=== PATIENT | female | born 1940 | race Caucasian/White ===

== ENCOUNTER 2022-08-18 23:48 | Inpatient (IN) | payer OTHER ==
[~2022-08-18] VITALS: Ht 170.2 cm; Wt 62.6 kg
[2022-08-18 23:56] VITALS: BP 120/63
--- NOTE | 2022-08-18 23:56 | NUR ---
PT KITTY KELLYS. TAKEN TO BED 4
[2022-08-19] MEDS ORDERED: NACL 0.9% 1,000 ML IV ONE
--- NOTE | 2022-08-19 00:02 | NUR ---
PATIENT BROUHT TO THE HOSPITAL IN AMBULANCE AFTER BEEN DC FROM CUSTODIAL AND HER SON CALL AUTOMATION ARCHITECT AFTER START COMPLAINING OF ABDOMINAL PAIN PATIENT STABLE VITALS SIGNS IN NORMAL LIMITS ST 102 ON MONITOR
--- NOTE | 2022-08-19 00:53 | NUR ---
X-Ray at bedside.
[2022-08-19 01:21] LABS: HEMATOCRIT 28.5 % (36-48); HEMOGLOBIN 9.2 g/dL (12.0-16.0); MEAN CORPUSCULAR HEMOGLOBIN 28 pg (27-31); MEAN CORPUSCULAR HGB CONC 32 g/dL (33-37); MEAN CORPUSCULAR VOLUME 85.8 fL (80-94); PLATELET COUNT (AUTO) 424 K/uL (140-450); RED BLOOD CELL COUNT(AUTO) 3.32 MIL/uL (4.20-5.40); RED CELL DISTRIBUTION WIDTH 15.1 % (11.6-13.7); WHITE BLOOD COUNT (AUTO) 14.3 K/uL (4.8-10.8)
[2022-08-19 01:36] LABS: PROTHROMBIN TIME 17.1 secs (10.8-13.4)
[2022-08-19 01:38] LABS: LYMPHOCYTES % (MANUAL) 10 % (20-46); MONOCYTES % (MANUAL) 4 % (5-12)
[2022-08-19 01:49] LABS: ALBUMIN 1.4 g/dL (3.4-5.0); ANION GAP 20.5 (8-16); ASPARTATE AMINOTRANSFERASE 35 U/L (15-37); CARBON DIOXIDE 18.2 mmol/L (21-32); CHLORIDE 101 mmol/L (98-107); CREATININE 3.9 mg/dL (0.6-1.3); GLUCOSE 132 mg/dL (74-106); POTASSIUM 4.7 mmol/L (3.5-5.1); SODIUM SERUM 135 mmol/L (136-145); TOTAL BILIRUBIN 0.6 mg/dL (0.0-1.0)
[2022-08-19 01:58] LABS: UREA NITROGEN, BLOOD 63 mg/dL (7-18)
[2022-08-19 02:05] LABS: APPEARANCE,URINE TURBID (CLEAR); BILIRUBIN,URINE NEGATIVE (NEGATIVE); BLOOD, URINE 3+ (NEGATIVE); COLOR,URINE YELLOW (YELLOW); LEUKOCYTE ESTERASE ,URINE 3+ (NEGATIVE); NITRITE, URINE NEGATIVE (NEGATIVE); UGLUCOSE NEGATIVE (NEGATIVE)
[2022-08-19 02:07] LABS: WBC,URINE TOO MANY TO COUNT /HPF (0-5); YEAST,URINE Moderate /HPF (None Seen)
[2022-08-19] MEDS ORDERED: cefTRIAXone 1,000 MG VIAL ONE (02:41)
[2022-08-19] MEDS: NACL 0.9% 1,000 ML IV SCH ×2 (03:15→10:00)
[2022-08-19] MEDS ORDERED: LEVO-481 PO (03:31)
[2022-08-19] MEDS ORDERED: MIRA25TE PO (03:31)
[2022-08-19] MEDS ORDERED: DAPA5TAB PO (03:31)
[2022-08-19] MEDS ORDERED: ATOR20TA PO (03:31)
[2022-08-19] MEDS ORDERED: LISI-487 PO (03:31)
[2022-08-19] MEDS ORDERED: APIX5TAB PO (03:31)
[2022-08-19] MEDS ORDERED: MIRT-91 PO (03:31)
[2022-08-19] MEDS ORDERED: AMLO10TA PO (03:31)
[2022-08-19] MEDS ORDERED: TAMS0.4C96 PO (03:31)
--- NOTE | 2022-08-19 03:35 | NUR ---
PATIENT STABLE VITALS SIGNS IN NORMAL LIMITS NOT COMPLAINING OF PAIN AT THIS TIME
--- NOTE | 2022-08-19 03:41 | NUR ---
PATIENT STABLE DC HOME FEELING WELL VITALS SIGNS IN NORMAL LIMITS ALL DC INSTRUCTION GAVE AND EXPLAINED WE RECOMMEND TO FOLLOW UP WITH PCP
--- NOTE | 2022-08-19 03:46 | NUR ---
PATIENT POSITIVE COVID 19
--- NOTE | 2022-08-19 04:37 | NUR ---
PATIENT STABLE VITALS SIGNS IN NORMAL LIMITS NOW SR 89 NOT COMPLAINING OF PAIN
--- NOTE | 2022-08-19 06:22 | NUR ---
PATIENT STABLE VITALS SIGNS IN NORMAL LIMITS NOT COMPLAINING AT THIS TIME
[2022-08-19] MEDS ORDERED: ACETAMINOPHEN 325 MG TAB PO PRN (07:05)
[2022-08-19] MEDS ORDERED: ONDANSETRON 4 MG/2 ML VIAL IVP PRN (07:05)
[2022-08-19] MEDS ORDERED: DOCUSATE SODIUM 100 MG GELCAP PO PRN (07:05)
[2022-08-19] MEDS ORDERED: LORazepam 2 MG/ML VIAL IVP PRN (07:05)
[2022-08-19] MEDS ORDERED: ZOLPIDEM 10 MG TAB PO PRN (07:05)
[2022-08-19] MEDS ORDERED: POTASSIUM CHLORIDE 10 MEQ TABER PO PRN (07:05)
[2022-08-19] MEDS ORDERED: DEXTROSE 50% 50 ML SYR IVP PRN (07:10)
--- NOTE | 2022-08-19 07:15 | NUR ---
Report recieved from NICOLE Solis for transfer of care.
--- NOTE | 2022-08-19 07:24 | NUR ---
Ultrasound at bedside.
--- NOTE | 2022-08-19 07:55 | NUR ---
Patient will be admitted to care of Dr. Au. Admited to Med-Surg. Will go to room 114. Belongings list completed. Report to
--- NOTE | 2022-08-19 07:56 | NUR ---
The patient's care was reviewed and supervised by Guillermina Watkins, RN, RN.
--- NOTE | 2022-08-19 08:15 | NUR ---
NURSE REPORT REPORT OBTAINED FROM ER NURSE KO AT 0804. VSS. AFEB. TRANSFERRED FROM ER VIA [facility]. 4 PERSON ASSIST FOR TRANSFER FROM [facility] TO BED. URINE FROM MOLINA WITH MILKY DAY BROWN URINE. IV 18 G L AC. NO SXS OF PAIN OR DISCOMFORT. SIDE RAILS ELEVATED. BED IN LOW POSITION. BED ALARM ON.
--- NOTE | 2022-08-19 09:32 | NUR ---
PATIENT HAS BEEN SCREENED AND CATEGORIZED LOW NUTRITION RISK. PATIENT WILL BE SEEN WITHIN 7 DAYS OF ADMISSION. 08/17/22-08/24/[address]
[2022-08-19] MEDS: amLODIPine 5 MG TAB PO SCH (09:49)
[2022-08-19] MEDS: BLOOD GLUCOSE MONITORING 1 DEV DEV FS SCH ×4 (09:52→21:55)
[2022-08-19 10:48] LABS: BASOPHILS % (AUTO) 0.1 % (0.0-2.0); HEMATOCRIT 26.2 % (36-48); HEMOGLOBIN 8.5 g/dL (12.0-16.0); LYMPHOCYTES # (AUTO) 0.7 K/uL (2.5-16.5); LYMPHOCYTES % (AUTO) 4.3 % (20.5-51.1); MEAN CORPUSCULAR HEMOGLOBIN 28 pg (27-31); MEAN CORPUSCULAR HGB CONC 33 g/dL (33-37); MEAN CORPUSCULAR VOLUME 84.4 fL (80-94); MONOCYTES # (AUTO) 0.4 K/uL (0.8-1.0); MONOCYTES % (AUTO) 2.4 % (1.7-9.3); NEUTROPHILS # (AUTO) 14.5 K/uL (1.8-7.7); NEUTROPHILS % (AUTO) 93.2 % (42.2-75.2); PLATELET COUNT (AUTO) 396 K/uL (140-450); WHITE BLOOD COUNT (AUTO) 15.5 K/uL (4.8-10.8)
[2022-08-19 10:57] LABS: ANION GAP 19.3 (8-16); CARBON DIOXIDE 15.8 mmol/L (21-32); CHLORIDE 105 mmol/L (98-107); CREATININE 3.1 mg/dL (0.6-1.3); GLUCOSE 120 mg/dL (74-106); POTASSIUM 4.1 mmol/L (3.5-5.1); SODIUM SERUM 136 mmol/L (136-145)
[2022-08-19 11:00] LABS: UREA NITROGEN, BLOOD 69 mg/dL (7-18)
[2022-08-19 13:00] VITALS: BP 123/63
[2022-08-19 16:00] VITALS: BP 132/52
[2022-08-19] MEDS ORDERED: NACL 0.45% 1,000 ML IV ONE (16:00)
--- NOTE | 2022-08-19 16:00 | NUR ---
NURSE NOTES DR CRAWFORD ORDERED 1/2 NS AT 75 ML/HR AND DR DURHAM AWARE AND SHE STATED OKAY. PIPE CATALAN RN
[2022-08-19] MEDS ORDERED: DEXT 5% / NACL 0.45% 1,000 ML IV SCH (16:55)
--- NOTE | 2022-08-19 19:35 | NUR ---
NURSE REPORT REPORT GIVEN TO FINN NURSE FRANCISCA. ALL QUESTIONS ANSWERED. HE HAD THE PATIENT IN ER AND IS AWARE OF THE PATIENT CONDITION. MRSA SWAB WILL BE DONE BY HIM AND THE IV IS NOW D5 1/2NS AT 65 ML/HR. PIPE CATALAN RN
[2022-08-19 20:00] VITALS: BP 126/59
--- NOTE | 2022-08-19 23:26 | NUR ---
PATIENT STABLE VITALS SIGNS IN NORMAL LIMITS NOT COMPLAINING OF PAIN BLADER LOOKS DISTENDED AND IRRIGATED THEM I GOT 2000 ML OUT PREVIOUS THAT I DIDNT HAVE ANY OUT PUT URINE IS NOW MORE CLEAR IN COMPARISON WITH YESTERDAY
[2022-08-20 00:08] VITALS: BP 121/62
[2022-08-20 04:00] VITALS: BP 117/57
[2022-08-20] MEDS: BLOOD GLUCOSE MONITORING 1 DEV DEV FS SCH ×4 (06:37→21:55)
--- NOTE | 2022-08-20 06:57 | NUR ---
PATIENT STABLE VITALS SIGNS IN NORMAL LIMITS NOT COMPLAINING OF PAIN AT THIS TIME
[2022-08-20 07:08] LABS: BASOPHILS % (AUTO) 0.1 % (0.0-2.0); EOSINOPHILS % (AUTO) 0.1 % (0.0-4.0); HEMATOCRIT 27.2 % (36-48); HEMOGLOBIN 8.7 g/dL (12.0-16.0); LYMPHOCYTES # (AUTO) 0.6 K/uL (2.5-16.5); LYMPHOCYTES % (AUTO) 5.3 % (20.5-51.1); MEAN CORPUSCULAR HEMOGLOBIN 28 pg (27-31); MEAN CORPUSCULAR HGB CONC 32 g/dL (33-37); MEAN CORPUSCULAR VOLUME 85.9 fL (80-94); MONOCYTES # (AUTO) 0.3 K/uL (0.8-1.0); MONOCYTES % (AUTO) 2.6 % (1.7-9.3); NEUTROPHILS # (AUTO) 10.8 K/uL (1.8-7.7); NEUTROPHILS % (AUTO) 91.9 % (42.2-75.2); PLATELET COUNT (AUTO) 345 K/uL (140-450); RED BLOOD CELL COUNT(AUTO) 3.17 MIL/uL (4.20-5.40); RED CELL DISTRIBUTION WIDTH 15.3 % (11.6-13.7); WHITE BLOOD COUNT (AUTO) 11.7 K/uL (4.8-10.8)
[2022-08-20 07:27] LABS: CARBON DIOXIDE 15.9 mmol/L (21-32); CHLORIDE 108 mmol/L (98-107); CREATININE 2.6 mg/dL (0.6-1.3); GLUCOSE 101 mg/dL (74-106); POTASSIUM 3.9 mmol/L (3.5-5.1); SODIUM SERUM 137 mmol/L (136-145)
[2022-08-20 07:53] LABS: UREA NITROGEN, BLOOD 67 mg/dL (7-18)
[2022-08-20 08:00] VITALS: BP 133/62
--- NOTE | 2022-08-20 09:20 | NUR ---
PATIENT HAS BEEN RE-SCREENED AND CATEGORIZED HIGH NUTRITION RISK. PATIENT WILL BE SEEN WITHIN 1-2 DAYS OF ADMISSION. 08/19/22-08/21/[address] REFERRAL RECEIVED 08/20/22 FOR REFUSE TO EAT >3 DAYS
[2022-08-20] MEDS: amLODIPine 5 MG TAB PO SCH (10:22)
--- NOTE | 2022-08-20 11:45 | NUR ---
SCREEN FOR LOW CRISTIANA SCALE AT RISK, CONTINUE TO FOLLOW PRESSURE ULCER PREVENTION INTERVENTIONS. -TURN AND REPOSITION PATIENT Q 2H, ASSIST IF NEEDED -ASSESS AND MONITOR SKIN CONDITION DURING POSITION CHANGES -OFFLOAD BILATERAL HEELS BY PLACING PILLOWS UNDER CALVES AT ALL TIMES, UNLESS OTHERWISE CONTRAINDICATED -PRESSURE REDISTRIBUTION BY PLACING PILLOWS AND OFFLOADING SACRALCOCCYX -KEEP SKIN CLEAN AND DRY AT ALL TIMES.
--- NOTE | 2022-08-20 13:41 | NUR ---
DC PLANNING ATTEMPTED TO MEET PT AT BEDSIDE HOWEVER, PT CURRENTLY IN ISO DUE TO BEING POSITIVE FOR COVID-19. OUTREACHED TO PTS EMERGENCY CONTACT [phone] HOWEVER, PHONE CURRENTLY DOES NOT ACCEPT INCOMING CALLS AT THIS TIME. OUTREACHED TO PT NURSE TO INQUIRE ON ADDITIONAL PHONE NUMBER ON FILE, NURSE PROVIDED NUMBER FOR [phone]. OUTREACHED TO JUAN, HOWEVER, NO ANSWER. MESSAGE LEFT REQUESTING A RETURN PHONE CALL.
[2022-08-20] MEDS: FLUCONAZOLE 100 MG/NS PREMIX 50 ML IV SCH (14:01)
--- NOTE | 2022-08-20 16:11 | NUR ---
08/20/22 RD INITIAL ASSESSMENT COMPLETED.PLEASE REFER TO NUTRITION ASSESSMENT UNDER CARE ACTIVITY FOR ESTIMATED NUTRITIONAL NEEDS. 1. CONTINUE REGULAR DIET TOLERATED 2. IF PT TOLERATING ENSURES BID, RECOMMEND INCREASING TO TID TO OPTIMIZE NUTRITIONAL NEEDS. 3. RD TO FOLLOW-UP 2-3 DAYS, HIGH RISK JULES GUZMAN RD
[2022-08-20 20:00] VITALS: BP 126/68
[2022-08-20] MEDS: INSULIN LISPRO SLIDING SCALE 100 UNITS/ML VIAL SUBQ PRN (21:52)
[2022-08-21] VITALS: BP 130/64
[2022-08-21 04:00] VITALS: BP 145/70
[2022-08-21] MEDS: BLOOD GLUCOSE MONITORING 1 DEV DEV FS SCH ×4 (06:54→21:00)
[2022-08-21 07:10] LABS: ANION GAP 13.3 (8-16); CARBON DIOXIDE 20.4 mmol/L (21-32); CHLORIDE 107 mmol/L (98-107); GLUCOSE 130 mg/dL (74-106); POTASSIUM 3.7 mmol/L (3.5-5.1); SODIUM SERUM 137 mmol/L (136-145); UREA NITROGEN, BLOOD 58 mg/dL (7-18)
[2022-08-21 07:12] LABS: BASOPHILS % (AUTO) 0.1 % (0.0-2.0); EOSINOPHILS % (AUTO) 0.3 % (0.0-4.0); HEMATOCRIT 27.1 % (36-48); HEMOGLOBIN 8.9 g/dL (12.0-16.0); LYMPHOCYTES # (AUTO) 0.6 K/uL (2.5-16.5); LYMPHOCYTES % (AUTO) 6.9 % (20.5-51.1); MEAN CORPUSCULAR HEMOGLOBIN 28 pg (27-31); MEAN CORPUSCULAR HGB CONC 33 g/dL (33-37); MEAN CORPUSCULAR VOLUME 84.7 fL (80-94); MONOCYTES # (AUTO) 0.3 K/uL (0.8-1.0); MONOCYTES % (AUTO) 3.4 % (1.7-9.3); NEUTROPHILS # (AUTO) 7.2 K/uL (1.8-7.7); NEUTROPHILS % (AUTO) 89.3 % (42.2-75.2); PLATELET COUNT (AUTO) 387 K/uL (140-450); RED CELL DISTRIBUTION WIDTH 15.4 % (11.6-13.7); WHITE BLOOD COUNT (AUTO) 8.1 K/uL (4.8-10.8)
[2022-08-21 08:00] VITALS: BP 115/80
[2022-08-21] MEDS: amLODIPine 5 MG TAB PO SCH (09:00)
[2022-08-21] MEDS: FLUCONAZOLE 100 MG/NS PREMIX 50 ML IV SCH (13:43)
--- NOTE | 2022-08-21 14:42 | NUR ---
DC PLANNING ASSESSMENT COMPLETE PLEASE REFER TO ASSESSMENT FOR ADDITIONAL DETAILS PT CURRENTLY IN ISO SHE IS CURRENTLY POSITIVE FOR COVID-19 THEREFORE COLLAT INFO GATHERED FROM PTS SON, JUAN. PT IS A 84 YR OLD MALE ADMITTED TO [facility] FROM HOME WITH DX OF UTI. PT HAS PAST MEDICAL HX OF CHRONIC KIDNEY DISEASE, URINARY TRACT INFECTIONS, HYPERLIPIDEMIA AND DIABETES PT IS REPORTED TO UTILIZE WC, CANE, FWW, BSC AND IS REPORTED TO COMPLETE ADL'S INDEPENDENTLY AT BASE LINE. JUAN REPORTS PT HAS BEEN IN AND OUT OF SNF FOR THE LAST 1.5 MONTHS. JUAN REPORTS PT WAS AT [facility] FOR 30 DAYS BEFORE BEING MOVED TO [facility] FOR 1 WEEK AND THEN MOVED TO [facility] IN [place] FOR 1 WEEK BEFORE BEING DC'D AND ALMOST IMMEDIATE BEING ADMITTED TO [facility] FROM HOME. PT RESIDES IN A GROUND FLOOR APT WITH HER AND SON, AT THE ADDRESS LISTED ON FILE. JUAN REQUESTING UPDATE ON POC AND REPORTS DC PLAN IS DEPENDENT ON PHYSICIANS RECOMMENDATIONS. JUAN REQUESTING CLINICAL UPDATE AND WAS TRANSFERRED OVER TO PTS NURSE FOR CLINICAL UPDATE. Addendum: 08/21/22 at 1444 by Cristiana CROWLEY Amended: Links added.
[2022-08-21 16:00] VITALS: BP 129/68
[2022-08-21] MEDS ORDERED: DEXT 5% / NACL 0.9% 500 ML IV SCH (17:45)
[2022-08-21] MEDS: DEXT 5% / NACL 0.9% 1,000 ML IV SCH (18:22)
--- NOTE | 2022-08-21 18:37 | NUR ---
PT A/OX1, CONFUSED, EASILY AROUSALABLE BUT SLEPT MAJORITY OF THE DAY. VSS. AFEBRILE. DENIES PAIN. RA. REFUSED ALL MEALS TODAY, INSISTED THAT "I ALREADY ATE YESTERDAY. " MOLINA CATHETER REPLACED PER MD ORDERS, 1000CC OUTPUT CLOUDY, BROWNISH URINE. TURNED Q2. IVF'S INITIATED, IV ABX CONTINUED. DAUGHTER AND SON UPDATED ON POC. ALL NEEDS MET, SAFETY AND COMFORT MEASURES MAINTAINED, CALL LIGHT WITHIN REACH.
--- NOTE | 2022-08-21 19:20 | NUR ---
RECEIVED PT FROM MORNING SHIFT NURSE. PT IS AOX1 AND ON BEDBOUND. PT IS ON ROOM AIR AND ON MECH. SOFT DIET. PT HAS MOLINA CATHETER AND HAS IV ON LEFT FOREARM GAUGE 20, RUNNING WITH D5NS AT 70ML/HR. PT SKIN IS INTACT. NO S/S OF RESPIRATORY DISTRESS NOTED. ALL SAFETY MEASURES IMPLEMENTED. BED IN LOW POSITION, BED WHEELS ON LOCK AND CALL LIGHT WITHIN REACH.
--- NOTE | 2022-08-21 19:32 | NUR ---
NOTIFIED DR. DURHAM THAT PT URINE CULTURE RESULT IS ENTEROCCOCUS FAECIUM OF >100,000 AND ACCORDING TO PHARMACIST (TIANA) RECOMMENDATION IS VANCOMYCIN IV PER PHARMACY BECAUSE ROCEPHIN DOESN'T COVER IT. SR. DURHAM REPLY REPLY TO START VANCO. ORDER WAS MADE AND CARRIED OUT.
[2022-08-21 20:00] VITALS: BP 150/60
[2022-08-21] MEDS ORDERED: VANCOMYCIN PER PHARMACY MC PRN (20:00)
[2022-08-21] MEDS ORDERED: VANCOMYCIN 1,000 MG VIAL ONE (20:32)
--- NOTE | 2022-08-21 20:36 | NUR ---
SCHEDULED AND PRESCRIBED MEDICATION WAS GIVEN TO PT PER MD ORDER. ALL SAFETY MEASURES IMPLEMENTED. BED IN LOW POSITION, BED WHEELS ON LOCK AND CALL LIGHT WITHIN REACH.
[2022-08-21] MEDS ORDERED: VANCOMYCIN 1GM/DEXT 5% PREMIX 200 ML IV SCH (21:00)
--- NOTE | 2022-08-21 21:00 | NUR ---
PT BLOOD GLUCOSE IS 117. NO INSULIN COVERAGE NEEDED.
--- NOTE | 2022-08-22 | NUR ---
PT IS ON SLEEP. CHEST RISE AND FALL SYMMETRICALLY NOTED. RESPIRATION IS EVEN AND UNLABORED. NO S/S OF RESPIRATORY DISTRESS NOTED. ALL SAFETY MEASURES IMPLEMENTED. BED IN LOW POSITION, BED WHEELS ON LOCK AND CALL LIGHT WITHIN REACH.
--- NOTE | 2022-08-22 02:00 | NUR ---
CHECKED THE PT, STILL ON SLEEP. CHEST RISE AND FALL SYMMETRICALLY NOTED. RESPIRATION IS EVEN AND UNLABORED. NO S/S OF RESPIRATORY DISTRESS NOTED. ALL SAFETY MEASURES IMPLEMENTED. BED IN LOW POSITION, BED WHEELS ON LOCK AND CALL LIGHT WITHIN REACH.
--- NOTE | 2022-08-22 04:00 | NUR ---
MORNING CARE WAS DONE TO PT. CHANGED CHUCKS, LINENS AND GOWN. NO S/S OF RESPIRATORY DISTRESS NOTED. ALL SAFETY MEASURES IMPLEMENTED. BED IN LOW POSITION, BED WHEELS ON LOCK AND CALL LIGHT WITHIN REACH.
[2022-08-22] MEDS: BLOOD GLUCOSE MONITORING 1 DEV DEV FS SCH ×4 (06:33→20:45)
--- NOTE | 2022-08-22 06:33 | NUR ---
PT BLOOD SUGAR IS 137. NO INSULIN COVERAGE NEEDED.
[2022-08-22 06:42] LABS: ANION GAP 13.4 (8-16); CARBON DIOXIDE 20.1 mmol/L (21-32); CHLORIDE 109 mmol/L (98-107); CREATININE 1.5 mg/dL (0.6-1.3); GLUCOSE 166 mg/dL (74-106); POTASSIUM 3.5 mmol/L (3.5-5.1); SODIUM SERUM 139 mmol/L (136-145); UREA NITROGEN, BLOOD 45 mg/dL (7-18)
[2022-08-22 06:45] LABS: BASOPHILS % (AUTO) 0.3 % (0.0-2.0); EOSINOPHILS % (AUTO) 0.4 % (0.0-4.0); HEMATOCRIT 26.6 % (36-48); HEMOGLOBIN 8.7 g/dL (12.0-16.0); LYMPHOCYTES # (AUTO) 0.7 K/uL (2.5-16.5); LYMPHOCYTES % (AUTO) 10.4 % (20.5-51.1); MEAN CORPUSCULAR HEMOGLOBIN 28 pg (27-31); MEAN CORPUSCULAR HGB CONC 33 g/dL (33-37); MEAN CORPUSCULAR VOLUME 84.9 fL (80-94); MONOCYTES # (AUTO) 0.2 K/uL (0.8-1.0); MONOCYTES % (AUTO) 3.5 % (1.7-9.3); NEUTROPHILS # (AUTO) 5.9 K/uL (1.8-7.7); NEUTROPHILS % (AUTO) 85.4 % (42.2-75.2); PLATELET COUNT (AUTO) 363 K/uL (140-450); RED BLOOD CELL COUNT(AUTO) 3.14 MIL/uL (4.20-5.40); RED CELL DISTRIBUTION WIDTH 15.3 % (11.6-13.7); WHITE BLOOD COUNT (AUTO) 6.9 K/uL (4.8-10.8)
--- NOTE | 2022-08-22 07:15 | NUR ---
RECEIVED REPORT FROM HEMATOLOGY NURSE RENNY FOR CONTINUITY OF CARE. INITIAL ASSESSMENT DONE. IVF INFUSING WELL. NO C/O PAIN OR DISCOMFORT. CALL LIGHT KEPT WITHIN REACH. WILL CONTINUE TO MONITOR.
--- NOTE | 2022-08-22 07:17 | NUR ---
PT IS STABLE. ENDORSED PT TO MORNING SHIFT NURSE FOR CONTINUITY OF CARE.
[2022-08-22 08:00] VITALS: BP 146/78
--- NOTE | 2022-08-22 08:00 | NUR ---
Patient's Plan of Care was discussed and reviewed with DRAFTER MARINE:
[2022-08-22] MEDS: DEXT 5% / NACL 0.9% 1,000 ML IV SCH ×2 (08:03→22:29)
[2022-08-22] MEDS: amLODIPine 5 MG TAB PO SCH (09:41)
--- NOTE | 2022-08-22 09:41 | NUR ---
SCHEDULED MEDICATIONS GIVEN. TOLERATING WELL.
[2022-08-22] MEDS: MAG SULF 2000 MG/WATER PREMIX 50 ML IV PRN (11:38)
--- NOTE | 2022-08-22 11:38 | NUR ---
PRN MAG RIDER WAS GIVEN FOR MAGNESIUM 1.5. TOLERATING WELL.
--- NOTE | 2022-08-22 11:42 | NUR ---
BS CHECKED 192. INSULIN WAS GIVEN TOLERATING WELL.
[2022-08-22] MEDS: FLUCONAZOLE 100 MG/NS PREMIX 50 ML IV SCH (14:00)
--- NOTE | 2022-08-22 14:00 | NUR ---
IV ABT DIFLUCAN WAS GIVEN BY ANDRE RIVERA. TOLERATING WELL.
[2022-08-22] MEDS: LINEZOLID 600 MG TAB PO SCH ×2 (14:52→20:21)
--- NOTE | 2022-08-22 14:52 | NUR ---
SCHEDULED ZYVOX PO WAS GIVEN. TOLERATING WELL.
[2022-08-22 16:00] VITALS: BP 138/61
[2022-08-22] MEDS: INSULIN LISPRO SLIDING SCALE 100 UNITS/ML VIAL SUBQ PRN (17:56)
--- NOTE | 2022-08-22 17:56 | NUR ---
BS CHECKED 162. INSULIN WAS GIVEN PER SLIDING SCALE.
--- NOTE | 2022-08-22 19:05 | NUR ---
RECEIVED PT FROM MORNING SHIFT NURSE. PT IS AOX2 AND ON BEDBOUND. PT IS ON ROOM AIR AND ON MECH. SOFT DIET. PT HAS MOLINA CATHETER AND HAS IV ON LEFT FOREARM GAUGE 20, RUNNING WITH D5NS AT 70ML/HR. PT SKIN IS INTACT. NO S/S OF RESPIRATORY DISTRESS NOTED. ALL SAFETY MEASURES IMPLEMENTED. BED IN LOW POSITION, BED WHEELS ON LOCK AND CALL LIGHT WITHIN REACH.
--- NOTE | 2022-08-22 20:45 | NUR ---
PT BLOOD GLUCOSE IS 138. NO INSULIN COVERAGE NEEDED.
[2022-08-23] VITALS: BP 137/62
--- NOTE | 2022-08-23 04:00 | NUR ---
MORNING CARE WAS DONE TO PT. CHANGED LINENS, CHUCKS, GOWN AND EMPTY THE MOLINA CATHETER WITH 50ML OUTPUT. ALL SAFETY MEASURES IMPLEMENTED. BED IN LOW POSITION, BED WHEELS ON LOCK AND CALL LIGHT WITHIN REACH.
[2022-08-23] MEDS: BLOOD GLUCOSE MONITORING 1 DEV DEV FS SCH ×4 (06:32→21:02)
[2022-08-23] MEDS: INSULIN LISPRO SLIDING SCALE 100 UNITS/ML VIAL SUBQ PRN (06:33)
--- NOTE | 2022-08-23 06:33 | NUR ---
PT BLOOD GLUCOSE IS 165. HUMALOG INSULIN 2 UNITS WAS GIVEN TO PT PER MD ORDER.
--- NOTE | 2022-08-23 07:08 | NUR ---
PT IS STABLE. ENDORSED PT TO MORNING SHIFT NURSE FOR CONTINUITY OF CARE.
--- NOTE | 2022-08-23 07:24 | NUR ---
RECEIVED PT CARE AND REPORT FROM MARIA M RIVERA. PT IS RESTING IN BED WITH OU CLOSED ON RIGHT SIDE, SEMI FOWLERS. NO VISIBLE S/S OF DISTRESS, DISCOMFORT, PAIN OR SOB. CALL LIGHT IS WITHIN REACH, ALL NEEDS MET AT THIS TIME. DROPLET PRECAUTIONS MAINTAINED.
[2022-08-23 07:31] LABS: BASOPHILS % (AUTO) 0.1 % (0.0-2.0); HEMATOCRIT 31.8 % (36-48); HEMOGLOBIN 10.2 g/dL (12.0-16.0); LYMPHOCYTES # (AUTO) 0.6 K/uL (2.5-16.5); MEAN CORPUSCULAR HEMOGLOBIN 28 pg (27-31); MEAN CORPUSCULAR HGB CONC 32 g/dL (33-37); MEAN CORPUSCULAR VOLUME 86.3 fL (80-94); MONOCYTES # (AUTO) 0.3 K/uL (0.8-1.0); MONOCYTES % (AUTO) 1.5 % (1.7-9.3); NEUTROPHILS # (AUTO) 17.8 K/uL (1.8-7.7); NEUTROPHILS % (AUTO) 95.4 % (42.2-75.2); PLATELET COUNT (AUTO) 377 K/uL (140-450); RED BLOOD CELL COUNT(AUTO) 3.69 MIL/uL (4.20-5.40); RED CELL DISTRIBUTION WIDTH 15.3 % (11.6-13.7); WHITE BLOOD COUNT (AUTO) 18.7 K/uL (4.8-10.8)
[2022-08-23 07:54] LABS: ANION GAP 16.7 (8-16); CARBON DIOXIDE 18.4 mmol/L (21-32); CHLORIDE 114 mmol/L (98-107); CREATININE 1.6 mg/dL (0.6-1.3); GLUCOSE 186 mg/dL (74-106); POTASSIUM 4.1 mmol/L (3.5-5.1); SODIUM SERUM 145 mmol/L (136-145); UREA NITROGEN, BLOOD 41 mg/dL (7-18)
[2022-08-23 08:00] VITALS: BP 129/69
[2022-08-23] MEDS: LINEZOLID 600 MG TAB PO SCH ×2 (08:46→21:02)
[2022-08-23] MEDS: amLODIPine 5 MG TAB PO SCH (08:47)
--- NOTE | 2022-08-23 09:30 | NUR ---
PATIENT REFUSING TO EAT BREAKFAST EVEN WHEN ASSISTANCE IS OFFERED.
--- NOTE | 2022-08-23 09:42 | NUR ---
TEXTED DR. OVIEDO TO REPORT THAT PATIENT DOES NOT HAVE A CODE STATUS. ALSO REPORTED THAT PATIENT'S WBC WAS 6.9 ON 08/22/22 AND IS 18.[address] QUINONEZ
--- NOTE | 2022-08-23 12:04 | NUR ---
DC PLANNING: RECEIVED A CALL FROM [facility] [phone] SPOKE WITH MAGED UPDATED PT'S CLINICAL AND DC PLAN TO [facility] THAT ACCEPT COVID PATIENT . SYL LYNNE WILL SEND IT TO CONTRACTED FACILITY. CM TO FOLLOW Addendum: 08/27/22 at 1438 by Manda Mensah RN DC PLANNING: PATIENT HAS AN ORDER FOR HOSPICE FAXED ALL INFO TO [facility] [place] [phone] CM TO FOLLOW Addendum: 08/27/22 at 1531 by Manda Mensah RN DC PLANNING PATIENT GOT ACCEPTED BY [facility] [place] SYL MISSY WILL BE GOING HOME WITH HOSPICE COLD REDUCTION ROLLER TIME WILL BE BETWEEN 7-8PM WITH [facility]. NOTIFIED FRED RIVERA CM TO FOLLOW
--- NOTE | 2022-08-23 12:13 | NUR ---
ATTEMPTED TO CALL CHILD JUAN MURRAY X2 WITH NO ANSWER. LEFT VOICEMAIL WITH NAME, CALL BACK NUMBER AND MESSAGE EXPLAINING THAT DOCTOR PREET WANTED TO SPEAK TO HIM FOR MORE INFO ON PATIENT. AWAITING CALL BACK. CALLED CHILD BOB X1 WITH NO ANSWER.
--- NOTE | 2022-08-23 12:26 | NUR ---
PATIENT BS IS 151. PATIENT IS REFUSING INSULIN COVERAGE AT THIS TIME. PT IS ALSO REFUSING TO EAT LUNCH. ATTEMPTED TO EDUCATE PATIENT. HOWEVER, PT IS NONCOMPLIANT AND DOES NOT RESPOND TO EDUCATION.
[2022-08-23] MEDS: DEXT 5% / NACL 0.9% 1,000 ML IV SCH (12:39)
--- NOTE | 2022-08-23 13:29 | NUR ---
PHYSICAL THERAPY CO-SIGN The Physical Therapy Progress Notes documented by Narcotics Investigator have been reviewed. Reviewed/Co-Signed by: Susana Barron PT Documentation Done by:GINA LOGAN PEST CONTROL WORKER HELPER Addendum: 08/23/22 at 1330 by Susana Barron PT Amended: Links added.
--- NOTE | 2022-08-23 15:18 | NUR ---
CALLED PHARMACY ABOUT 1400 FLUCONAZOLE. STATED THAT MEDICATION IS BEING MADE AND WILL BE DELIVERED IN APPROXIMATELY 15 MINUTES.
[2022-08-23] MEDS: FLUCONAZOLE 100 MG/NS PREMIX 50 ML IV SCH (15:43)
[2022-08-23 16:00] VITALS: BP 126/69
--- NOTE | 2022-08-23 17:04 | NUR ---
08/23/22 RD FOLLOW UP COMPLETED PLEASE REFER TO NUTRITION ASSESSMENT UNDER CARE ACTIVITY FOR ESTIMATED NUTRITIONAL NEEDS. 1. CONTINUE MECHANICAL SOFT DIET TOLERATED 2. RECOMMEND GLUCERNA TID TO OPTIMIZE NUTRITIONAL NEEDS. -WILL PROVIDE 660 KCAL AND [address] GM PROTEIN DA[address]. RD TO FOLLOW-UP 3-5 DAYS, MODERATE RISK REVIEWED BY CARMELA HUNT RD
--- NOTE | 2022-08-23 18:40 | NUR ---
PT RESTING IN BED SUPINE WITH OU CLOSED SEMI FOWLERS. NO VISIBLE S/S OF DISTRESS, DISCOMFORT, PAIN OR SOB. CALL LIGHT IS WITHIN REACH, ALL NEEDS MET AT THIS TIME. WILL ENDORSE TO NOC SHIFT RN.
--- NOTE | 2022-08-23 19:30 | NUR ---
RECEIVED REPORT FROM DAY SHIFT NURSE FOR CONTINUITY OF CARE. PT IS ASLEEP IN BED, CURRENTLY ON ROOM AIR WITH NO APPARENT SIGNS OF DISTRESS NOTED. PT IS COVID POSITIVE. PT HAS AN IV SITE AT LEFT FOREARM 20 GAUGE, INTACT AND PATENT, RUNNING D5NS AT 70ML/HR. OVERALL SKIN IS INTACT. WILL MONITOR THROUGHOUT THE NIGHT.
--- NOTE | 2022-08-23 20:00 | NUR ---
Patient's Plan of Care was discussed and reviewed with BASIL: SARAH
--- NOTE | 2022-08-23 21:00 | NUR ---
PT 2100 GLUCOSE CHECK = 116, NO COVERAGE NEEDED, WILL CONTINUE TO MONITOR.
[2022-08-24] VITALS: BP 107/63
--- NOTE | 2022-08-24 02:21 | NUR ---
PT ASLEEP WITH NO SIGNS OF DISTRESS NOTED. NOTICEABLE CHEST RISE AND FALL, RESPIRATIONS EVEN AND UNLABORED, SATING WELL. WILL CONTINUE TO MONITOR.
[2022-08-24] MEDS: DEXT 5% / NACL 0.9% 1,000 ML IV SCH (02:57)
--- NOTE | 2022-08-24 06:00 | NUR ---
PT SLEPT WELL THROUGHOUT THE NIGHT. WAS UNABLE TO SIGN CONSENT FOR EGD AT THIS TIME. WILL ENDORSE TO DAY SHIFT NURSE IN STABLE CONDITION.
[2022-08-24] MEDS: INSULIN LISPRO SLIDING SCALE 100 UNITS/ML VIAL SUBQ PRN (06:23)
[2022-08-24] MEDS: BLOOD GLUCOSE MONITORING 1 DEV DEV FS SCH ×4 (06:27→20:20)
[2022-08-24 06:45] LABS: HEMATOCRIT 23.8 % (36-48); HEMOGLOBIN 7.8 g/dL (12.0-16.0); MEAN CORPUSCULAR HEMOGLOBIN 28 pg (27-31); MEAN CORPUSCULAR HGB CONC 33 g/dL (33-37); MEAN CORPUSCULAR VOLUME 84.5 fL (80-94); PLATELET COUNT (AUTO) 282 K/uL (140-450); RED BLOOD CELL COUNT(AUTO) 2.81 MIL/uL (4.20-5.40); RED CELL DISTRIBUTION WIDTH 15.6 % (11.6-13.7)
[2022-08-24 06:53] LABS: WHITE BLOOD COUNT (AUTO) 26.7 K/uL (4.8-10.8)
--- NOTE | 2022-08-24 07:40 | NUR ---
RECEIVED PT CARE AND REPORT FROM SARAH RIVERA. PT IS RESTING IN BED SEMI FOWLERS WITH OU CLOSED. NO VISIBLE S/S OF DISTRESS, DISCOMFORT, PAIN OR SOB. DROPLET PRECAUTIONS MAINTAINED. CALL LIGHT IS WITHIN REACH, ALL NEEDS MET AT THIS TIME.
[2022-08-24 07:42] LABS: BASOPHILS % (MANUAL) 0 % (0-2); EOSINOPHILS % (MANUAL) 0 % (0-4); LYMPHOCYTES % (MANUAL) 4 % (20-46); MONOCYTES % (MANUAL) 1 % (5-12)
--- NOTE | 2022-08-24 07:45 | NUR ---
TEXTED DR. OVIEDO TO REPORT WBC LEVEL 26.7. AWAITING RESPONSE.
[2022-08-24 08:00] VITALS: BP 128/72
[2022-08-24 08:08] LABS: ANION GAP 16.4 (8-16); CARBON DIOXIDE 17.4 mmol/L (21-32); CHLORIDE 117 mmol/L (98-107); GLUCOSE 172 mg/dL (74-106); POTASSIUM 3.8 mmol/L (3.5-5.1); SODIUM SERUM 147 mmol/L (136-145); UREA NITROGEN, BLOOD 50 mg/dL (7-18)
[2022-08-24] MEDS: amLODIPine 5 MG TAB PO SCH (08:50)
[2022-08-24] MEDS: LINEZOLID 600 MG TAB PO SCH ×2 (08:50→20:21)
--- NOTE | 2022-08-24 09:30 | NUR ---
OBTAINED CONSENT FOR EGD. RECEIVED CONSENT FROM SON JUAN MURRAY OVER PHONE. WITNESSED BY SHAHRAM GRACIA. DR. DARDEN INFORMED OF CONSENT.
--- NOTE | 2022-08-24 10:40 | NUR ---
LEFT AC IV DISLODGED AND LEAKING. REMOVED IV WITH CATHETER INTACT. SKIN INTACT. STARTED NEW IV 22G IN LEFT HAND X1 ATTEMPT. CONNECTED TO IV FLUIDS AND CONTINUED.
[2022-08-24] MEDS: NACL 0.9% 1,000 ML IV SCH ×2 (10:55→23:55)
[2022-08-24] MEDS ORDERED: MIDAZOLAM 2 MG/2 ML VIAL ONE (12:04)
[2022-08-24] MEDS ORDERED: fentaNYL citrate 0.05 MG/ML VIAL ONE (12:04)
--- NOTE | 2022-08-24 12:44 | NUR ---
PATIENT RETURNED FROM EGD AND PEG TUBE PLACEMENT PROCEDURE IN BED, ACCOMPANIED BY OR TECH. PT IS RESTING WITH OU CLOSED. NO VISIBLE S/S OF DISTRESS, DISCOMFORT, PAIN OR SOB. RECEIVED REPORT FROM TECH. PT RECEIVED VERSED 3MG AND FENTANYL 5MG. WILL CALL TO REPORT TO [employer] PRINCE TO REPORT. PT IS TO HAVE HIDA SCAN.
--- NOTE | 2022-08-24 12:48 | NUR ---
HIDA SCAN PLANNED FOR TOMORROW IN THE MORNING. WILL RECEIVE CALL FROM [employer] TO SCHEDULE TIME.
[2022-08-24] MEDS ORDERED: MIDAZOLAM 2 MG/2 ML VIAL IVP ONE (12:55)
[2022-08-24] MEDS ORDERED: fentaNYL citrate 0.05 MG/ML VIAL IVP ONE (12:55)
--- NOTE | 2022-08-24 13:21 | NUR ---
CALLED SON JUAN TO UPDATE ON MOTHER'S RETURN FROM PROCEDURE AND UPDATE ON CONDITION. NO ANSWER, LEFT VOICEMAIL WITH CALL BACK NUMBER.
--- NOTE | 2022-08-24 13:57 | NUR ---
RECEIVED CALL BACK FROM ROBYN MARTINEZ. REPORTED ON PATIENT'S CONDITION.
[2022-08-24] MEDS: FLUCONAZOLE 100 MG/NS PREMIX 50 ML IV SCH (14:16)
--- NOTE | 2022-08-24 14:20 | NUR ---
PHYSICAL THERAPY CO-SIGN The Physical Therapy Progress Notes documented by Screen Operator have been reviewed. Reviewed/Co-Signed by: Susana Barron PT Documentation Done by:GINA LOGAN MECHANICAL DEVELOPER PROVER Addendum: 08/25/22 at 1420 by Susana Barron PT Amended: Links added.
[2022-08-24 16:00] VITALS: BP 110/57
--- NOTE | 2022-08-24 16:10 | NUR ---
1545 CALLED CARRIAGE RIDER TO RECEIVE UPDATE IF PATIENT'S TUBE FEEDING WAS READY. STATED THAT THEY WERE STILL MAKING FEEDINGS AT THIS TIME.
[2022-08-24] MEDS: LANSOPRAZOLE 30 MG CAPDR PO SCH (17:13)
[2022-08-24] MEDS: FERROUS GLUCONATE 324 MG TAB PO SCH (17:14)
--- NOTE | 2022-08-24 17:20 | NUR ---
STARTED FEEDING AT 20ML/HR RATE WITH WATER FLUSHES AT 50ML EVERY 6HR.
--- NOTE | 2022-08-24 17:30 | NUR ---
PAUSED FEEDING D/T PATIENT PREPARING FOR HIDA SCAN.
--- NOTE | 2022-08-24 18:46 | NUR ---
PT IS RESTING IN BED SUPINE WITH OU CLOSED, SEMI-FOWLERS. NO VISIBLE S/S OF DISTRESS, DISCOMFORT, PAIN OR SOB. DROPLET PRECAUTIONS MAINTAINED. FEEDING CONTINUES TO BE PAUSED FOR HIDA SCAN AT A LATER TIME. CALL LIGHT IS WITHIN REACH, ALL NEEDS MET AT THIS TIME. WILL ENDORSE TO NOC SHIFT.
--- NOTE | 2022-08-24 19:41 | NUR ---
RECEIVED REPORT FROM DAY SHIFT NURSE FOR CONTINUITY OF CARE. PT IS ASLEEP IN BED, CURRENTLY ON ROOM AIR WITH NO APPARENT SIGNS OF DISTRESS NOTED. PT IS COVID POSITIVE. PT HAS AN IV SITE AT LEFT HAND 22 GAUGE, INTACT AND PATENT, RUNNING NS @ 75/HR. OVERALL SKIN IS INTACT. PEG TUBE WAS INSERTED BUT FEEDING ON HOLD FOR HIDA SCAN AT LATER TIME. WILL MONITOR FREQUENTLY.
--- NOTE | 2022-08-24 20:00 | NUR ---
Patient's Plan of Care was discussed and reviewed with BASIL: SARAH
--- NOTE | 2022-08-24 22:30 | NUR ---
PT TAKEN TO NUCLEAR MEDICINE FOR HIDA SCAN. PT STABLE AT THIS TIME.
--- NOTE | 2022-08-24 23:15 | NUR ---
PT RETURNED FROM NUCLEAR MEDICINE, HIDA SCAN COMPLETE, AWAITING RESULTS. WILL CONTINUE TO MONITOR.
[2022-08-25] VITALS: BP 122/57
[2022-08-25] MEDS: MORPHINE SULFATE 2 MG/ML SYR IVP PRN ×2 (04:33→18:02)
--- NOTE | 2022-08-25 04:51 | NUR ---
PT STATING A PAIN LEVEL OF 9/10 IN LOWER RIGHT FOOT. REPOSITIONED AND STRETCHED LEG WHICH HELPED A BIT BUT PT STILL REPORTED HIGH PAIN LEVEL. MORPHINE WAS GIVEN PRN BY BEN RIVERA. WILL CONTINUE TO MONITOR.
--- NOTE | 2022-08-25 06:00 | NUR ---
PT ABDOMEN VERY DISTENDED AND COMPLAINING OF SEVERE PAIN. MOLINA WAS FOUND LEAKING. CONTACTED MD TO DISCONTINUE FC AND START A NEW ONE. NEW MOLINA WAS INSERTED SUCCESSFULLY. WILL CONTINUE TO MONITOR.
--- NOTE | 2022-08-25 07:30 | NUR ---
RECEIVED PT FROM MESS ATTENDANT CREW NURSE FOR CONTINUITY OF CARE. PT IS SLEEPING, VISIBLE CHEST RISE/FALL. RESPIRATIONS EVEN AND UNLABORED ON RA, CONNECTED TO PULSE OXIMETER AT BEDSIDE O2 SATURATING AT 98%. NO DISTRESS NOTED. IV ON L HAND 22G INFUSING NS @75, CALL LIGHT WITHIN REACH. ALL SAFETY PRECAUTIONS IN PLACE. CALL LIGHT WITHIN REACH.
--- NOTE | 2022-08-25 07:46 | NUR ---
FC DRAINING URINE WITH LARGE AMOUNT OF SEDIMENT. CONTACTED MD FOR AN ORDER TO FLUSH MOLINA NEEDED. PT OTHERWISE STABLE, NO COMPLAINTS OF PAIN AT THIS TIME. ENDORSED TO DAY SHIFT NURSE FOR CONTINUITY OF CARE.
[2022-08-25] MEDS: BLOOD GLUCOSE MONITORING 1 DEV DEV FS SCH ×4 (07:48→21:10)
[2022-08-25] MEDS: LANSOPRAZOLE 30 MG CAPDR PO SCH ×2 (07:50→17:43)
[2022-08-25 08:00] VITALS: BP 117/52
[2022-08-25] MEDS: FERROUS GLUCONATE 324 MG TAB PO SCH ×2 (09:34→17:47)
[2022-08-25] MEDS: LACTULOSE 20 GM/30 ML UDC PO SCH (09:34)
[2022-08-25] MEDS: LINEZOLID 600 MG TAB PO SCH ×2 (09:35→20:57)
[2022-08-25] MEDS: amLODIPine 5 MG TAB PO SCH (09:37)
--- NOTE | 2022-08-25 10:10 | NUR ---
FLUSHED MOLINA WITH 80CC OF SALINE. PT C/O HEADACHE ADMINISTERED PRN TYLENOL.
[2022-08-25] MEDS: NACL 0.9% 1,000 ML IV SCH (13:15)
--- NOTE | 2022-08-25 13:40 | NUR ---
LARGE AMOUNT OF SEDIMENT NOTED ON MOLINA FLUSHED WITH 40CC.
[2022-08-25 16:00] VITALS: BP 119/54
--- NOTE | 2022-08-25 19:30 | NUR ---
RECEIVED REPORT FROM DAY SHIFT NURSE GISEL FOR CONTINUITY OF CARE. PATIENT IS A&O X2. PATIENT IS ON ROOM AIR, BREATHING IS NORMAL WITH SYMMETRICAL RISE AND FALL OF CHEST. IV IS A LEFT HAND 22G, RUNNING NS 75. PATIENT IS SLEEPING, LYING IN SEMI-FOWLERS POSITION. BED IS IN LOWEST POSITION WITH WHEELS LOCKED AND CALL LIGHT IN PLACE. WILL CONTINUE TO OBSERVE PATIENT.
--- NOTE | 2022-08-25 19:31 | NUR ---
ENDORSED PT TO GRANT ADMINISTRATOR FOR CONTINUITY OF CARE. PT STABLE.
[2022-08-25 20:00] VITALS: BP 111/49
[2022-08-26] MEDS: NACL 0.9% 1,000 ML IV SCH (03:31)
[2022-08-26 04:00] VITALS: BP 125/57
[2022-08-26] MEDS: MORPHINE SULFATE 2 MG/ML SYR IVP PRN ×2 (04:37→14:44)
--- NOTE | 2022-08-26 04:40 | NUR ---
PATIENT'S CATHETER WAS FLUSHED DURING THE NIGHT WITH 40ML NS. EMPTIED 1500 FROM CATHETER; URINE IS LIGHT BROWN AND THICK. PURPLE BOOTS WERE PLACED ON PATIENT'S FEET TO PROTECT HER HEELS. PATIENT WAS MOANING WHILE ASLEEP SAYING, "OW!!! MY LEG". TRIED ASKING PATIENT WHICH LEG WAS BOTHERING HER AND HOW BAD WAS THE PAIN USING 0-10 NUMBER SCALE. PATIENT JUST KEPT SAYING "OW!!! MY LEG". CHECKED PATIENT'S VITALS AND CHECKED CHART; MORPHINE WAS APPROPRIATE TO ADMINISTER. ADMINISTERED MORPHINE TO PATIENT. FEEDING IS STILL RUNNING, IV IS STILL RUNNING. WILL CONTINUE TO OBSERVE PATIENT.
[2022-08-26] MEDS: LANSOPRAZOLE 30 MG CAPDR PO SCH ×2 (06:57→16:30)
[2022-08-26] MEDS: BLOOD GLUCOSE MONITORING 1 DEV DEV FS SCH ×4 (06:57→21:40)
--- NOTE | 2022-08-26 07:41 | NUR ---
ENDORSED TO DAY SHIFT NURSE MARIFER FOR CONTINUITY OF CARE. PATIENT IS STABLE.
[2022-08-26 08:00] VITALS: BP 124/58
[2022-08-26] MEDS: FERROUS GLUCONATE 324 MG TAB PO SCH ×2 (08:00→17:41)
[2022-08-26 08:54] LABS: BASOPHILS % (AUTO) 0.2 % (0.0-2.0); EOSINOPHILS # (AUTO) 0.1 K/uL (0-0.4); EOSINOPHILS % (AUTO) 0.8 % (0.0-4.0); HEMATOCRIT 25.3 % (36-48); HEMOGLOBIN 8.2 g/dL (12.0-16.0); LYMPHOCYTES # (AUTO) 0.5 K/uL (2.5-16.5); MEAN CORPUSCULAR HEMOGLOBIN 28 pg (27-31); MEAN CORPUSCULAR HGB CONC 33 g/dL (33-37); MONOCYTES # (AUTO) 0.1 K/uL (0.8-1.0); NEUTROPHILS # (AUTO) 7.2 K/uL (1.8-7.7); PLATELET COUNT (AUTO) 233 K/uL (140-450); RED BLOOD CELL COUNT(AUTO) 2.95 MIL/uL (4.20-5.40); RED CELL DISTRIBUTION WIDTH 16.2 % (11.6-13.7); WHITE BLOOD COUNT (AUTO) 7.9 K/uL (4.8-10.8)
[2022-08-26] MEDS: LINEZOLID 600 MG TAB PO SCH ×2 (09:03→21:08)
[2022-08-26] MEDS: amLODIPine 5 MG TAB PO SCH (09:03)
[2022-08-26] MEDS: LACTULOSE 20 GM/30 ML UDC PO SCH (09:04)
[2022-08-26 09:25] LABS: ALBUMIN 1.1 g/dL (3.4-5.0); ANION GAP 11.7 (8-16); ASPARTATE AMINOTRANSFERASE 18 U/L (15-37); CARBON DIOXIDE 20.4 mmol/L (21-32); CHLORIDE 119 mmol/L (98-107); CREATININE 1.5 mg/dL (0.6-1.3); GLUCOSE 141 mg/dL (74-106); MAGNESIUM 1.6 mg/dL (1.8-2.4); POTASSIUM 4.1 mmol/L (3.5-5.1); SODIUM SERUM 147 mmol/L (136-145); TOTAL BILIRUBIN 0.2 mg/dL (0.0-1.0); UREA NITROGEN, BLOOD 40 mg/dL (7-18)
[2022-08-26 09:42] LABS: LYMPHOCYTES % (AUTO) 5.7 % (20.5-51.1); MONOCYTES % (AUTO) 1.6 % (1.7-9.3); NEUTROPHILS % (AUTO) 91.7 % (42.2-75.2)
--- NOTE | 2022-08-26 09:51 | NUR ---
PATIENT HAS BEEN RE-SCREENED AND CATEGORIZED HIGH NUTRITION RISK. PATIENT WILL BE SEEN WITHIN 1-2 DAYS OF REFERRAL. 08/25/22-08/27/[address] FNS CONSULT RECEIVED FOR WOUND ON LEFT HEEL AND SACRAL
[2022-08-26] MEDS ORDERED: LINE600T10 PO (14:03)
[2022-08-26] MEDS ORDERED: traMADol 50 MG TAB PO PRN (15:00)
[2022-08-26] MEDS: MAG SULF 2000 MG/WATER PREMIX 50 ML IV PRN (15:30)
[2022-08-26 16:00] VITALS: BP 141/51
--- NOTE | 2022-08-26 19:33 | NUR ---
08/26/22 RD FOLLOW UP COMPLETED.PLEASE REFER TO NUTRITION ASSESSMENT UNDER CARE ACTIVITY FOR ESTIMATED NUTRITIONAL NEEDS. 1. CONTINUE GLUCERNA 1.2 @ 50 ML/HR; FWF 50 ML Q6HAS TOLERATED 2. RECOMMEND MATT BID TO PROMOTE WOUND HEALING PROVIDES 160 KCAL, 5 GRAMS PROTEIN). 3.MONITOR GI SYMPTOMS 4. RD TO FOLLOW-UP IN 2-3 DAYS PATIENT IS HIGH RISK. JULES GUZMAN RD
--- NOTE | 2022-08-26 19:43 | NUR ---
ENDORSE PATIENT IN STABLE CONDITION TO PM SIFT NURSE. DISCHARGE ORDER PRESENT PENDING FOR HOSPICE PLACEMENT
--- NOTE | 2022-08-26 19:44 | NUR ---
RECEIVED ENDORSEMENT FROM DAY SHIFT NURSE FOR CONTINUITY OF CARE. PT IS AWAKE, ALERT AND VERBALLY RESPONSIVE. PT IS ON BED REST, WITH TUBE FEEDING - GLUCERNA 1.2. IV FLUID IS INFUSING WELL, INTACT AND PATENT.
--- NOTE | 2022-08-26 21:40 | NUR ---
BLOOD GLUCOSE CHECKED = 131, NO INSULIN NEEDED, NO COVERAGE.
[2022-08-27 00:56] VITALS: BP 142/63
--- NOTE | 2022-08-27 01:30 | NUR ---
PT HAS EXTRA EXTRA LARGE SOFT BM.
--- NOTE | 2022-08-27 02:30 | NUR ---
PT IS ASLEEP. NO FACIAL GRIMACING.
--- NOTE | 2022-08-27 05:35 | NUR ---
PT COMPLAINTS OF NAUSEA, NAUSEA MEDICATION ZOFRAN ADMINISTERED ORDERED.
[2022-08-27 06:12] LABS: BASOPHILS % (AUTO) 0.5 % (0.0-2.0); EOSINOPHILS # (AUTO) 0.1 K/uL (0-0.4); EOSINOPHILS % (AUTO) 1.1 % (0.0-4.0); HEMATOCRIT 24.1 % (36-48); HEMOGLOBIN 7.8 g/dL (12.0-16.0); LYMPHOCYTES # (AUTO) 0.8 K/uL (2.5-16.5); LYMPHOCYTES % (AUTO) 12.6 % (20.5-51.1); MEAN CORPUSCULAR HEMOGLOBIN 28 pg (27-31); MEAN CORPUSCULAR HGB CONC 33 g/dL (33-37); MEAN CORPUSCULAR VOLUME 85.1 fL (80-94); MONOCYTES # (AUTO) 0.2 K/uL (0.8-1.0); MONOCYTES % (AUTO) 2.6 % (1.7-9.3); NEUTROPHILS # (AUTO) 5.5 K/uL (1.8-7.7); NEUTROPHILS % (AUTO) 83.2 % (42.2-75.2); PLATELET COUNT (AUTO) 211 K/uL (140-450); RED BLOOD CELL COUNT(AUTO) 2.83 MIL/uL (4.20-5.40); RED CELL DISTRIBUTION WIDTH 15.9 % (11.6-13.7); WHITE BLOOD COUNT (AUTO) 6.6 K/uL (4.8-10.8)
[2022-08-27 06:24] LABS: ALBUMIN 1.1 g/dL (3.4-5.0); ANION GAP 11.9 (8-16); ASPARTATE AMINOTRANSFERASE 18 U/L (15-37); CHLORIDE 117 mmol/L (98-107); CREATININE 1.3 mg/dL (0.6-1.3); GLUCOSE 152 mg/dL (74-106); PHOSPHORUS 2.5 mg/dL (2.5-4.9); POTASSIUM 3.9 mmol/L (3.5-5.1); SODIUM SERUM 147 mmol/L (136-145); TOTAL BILIRUBIN 0.2 mg/dL (0.0-1.0); UREA NITROGEN, BLOOD 33 mg/dL (7-18)
[2022-08-27] MEDS: BLOOD GLUCOSE MONITORING 1 DEV DEV FS SCH ×3 (06:57→17:28)
--- NOTE | 2022-08-27 06:57 | NUR ---
BLOOD SUGAR CHECKED = 114, NO INSULIN COVERAGE.
--- NOTE | 2022-08-27 07:36 | NUR ---
PT IS ON STABLE CONDITION. ALL SAFETY MEASURES ARE IN PLACE. ENDORSED FRED DAY SHIFT
[2022-08-27 08:00] VITALS: BP 134/57
[2022-08-27] MEDS: amLODIPine 5 MG TAB PO SCH (10:21)
[2022-08-27] MEDS: LANSOPRAZOLE 30 MG CAPDR PO SCH ×2 (10:21→16:30)
[2022-08-27] MEDS: FERROUS GLUCONATE 324 MG TAB PO SCH ×2 (10:21→17:00)
[2022-08-27] MEDS: LACTULOSE 20 GM/30 ML UDC PO SCH (10:22)
[2022-08-27 13:06] VITALS: BP 134/57
--- NOTE | 2022-08-27 15:34 | NUR ---
RECEIVE CALL FROM [facility] [employer] ([phone]) PERSONAL, GERTRUDE CALL THAT PATIENT IS GOING TO DISCHARGE HOME WITH [facility] TODAY. DAUGHTER, NADIYA SALGADO. CLEVE ([phone]) FRONT OFFICE HELP [facility] BETWEEN 1900 TO 1999
[2022-08-27 18:47] VITALS: BP 134/51
--- NOTE | 2022-08-27 19:08 | NUR ---
1900 CLEVE ([phone] NON-EMERGENCY MEDICAL TRANSPORTATION IS HER TO METAL FILER PATIENT HOME W/ [facility]. IV ACCESS , WRIST BAND REMOVED, MOLINA EMPTY 700ML, TUBE-FEED DISCONNECTED, PATIENT IS IN STABLE CONDITION WHILE TRANSPORTERS PICK HER UP. PRIOR THIS, NURSE CALLED PATIENT'S SON, [facility] PERSONAL, GERTRUDE MULTIPLE TIME.
== END 2022-08-27 19:16 | DRG 871 ==
LOC: MED 23:48 → MMU 08-19 03:15 → MTU 08-19 05:48
PROVIDERS: ADMIT Hospitalist; ATTEND Hospitalist
PROC: 0T9B70Z Drainage of Bladder with Drainage Device, Via Natural or Artificial Opening (ICD-10-PCS; 2022-08-19)
PROC: 0T2BX0Z Change Drainage Device in Bladder, External Approach (ICD-10-PCS; 2022-08-21)
PROC: 0DB68ZX Excision of Stomach, Via Natural or Artificial Opening Endoscopic, Diagnostic (ICD-10-PCS; principal; 2022-08-24 11:30)
PROC: 0DH68UZ Insertion of Feeding Device into Stomach, Via Natural or Artificial Opening Endoscopic (ICD-10-PCS; 2022-08-24 11:30)
DX: A41.9 Sepsis, unspecified organism (principal); E43 Unspecified severe protein-calorie malnutrition; N17.0 Acute kidney failure with tubular necrosis; G93.41 Metabolic encephalopathy; U07.1 COVID-19; N39.0 Urinary tract infection, site not specified; E87.1 Hypo-osmolality and hyponatremia; E87.0 Hyperosmolality and hypernatremia; R33.9 Retention of urine, unspecified; N18.9 Chronic kidney disease, unspecified; Z68.21 Body mass index [BMI] 21.0-21.9, adult; E86.0 Dehydration; D63.1 Anemia in chronic kidney disease; E78.5 Hyperlipidemia, unspecified; K26.9 Duodenal ulcer, unspecified as acute or chronic, without hemorrhage or perforation; I12.9 Hypertensive chronic kidney disease with stage 1 through stage 4 chronic kidney disease, or unspecified chronic kidney disease; Z21 Asymptomatic human immunodeficiency virus [HIV] infection status; F03.90 Unspecified dementia, unspecified severity, without behavioral disturbance, psychotic disturbance, mood disturbance, and anxiety; E11.22 Type 2 diabetes mellitus with diabetic chronic kidney disease; N13.9 Obstructive and reflux uropathy, unspecified; B95.2 Enterococcus as the cause of diseases classified elsewhere; K44.9 Diaphragmatic hernia without obstruction or gangrene; K80.20 Calculus of gallbladder without cholecystitis without obstruction; Z88.8 Allergy status to other drugs, medicaments and biological substances; Z87.11 Personal history of peptic ulcer disease
CPT/HCPCS: 36415; 70450; 71045; 76700; 76705; 76770; 78445; 80048; 80053; 81001; 82948; 83605; 83735; 84100; 85025; 85610; 85730; 86677; 87040; 87081; 87086; 87186; 93005; 96361; 96365; 96366; 97112; 97163-GP; 97530; 99285; A9510; J0696; J1450; J2250; J2270; J2405; J3010; J3370; J3475; J7030; J7060; Q0092